=== PATIENT | female | born 1955 | race Asian ===

== ENCOUNTER 2023-08-29 13:57 | Outpatient (AMB) | payer BC, SELFPAY ==
--- NOTE | 2023-08-29 14:03 | A.OFFVIS_ITS ---
Intake Vital Signs 08/29/23 14:06 Height 5 ft 4 in Weight 112 lb 6.972 oz BMI 19.3 BP 160/84 H Blood Pressure Location Lt brachial Position Sitting Pulse 68 Intake Visit Reasons: H Pylori, eructation Intake Note: Thuy presents in the office for H Pylori & Eructation. CC: She states that she is having acid reflux and mainly she has bad breathe in the morning and she feels something is wrong in her stomach. She states after she eats she feels like it gets worse. She has a lot of gas in her stomach and belching with flatulence. She tested pos for h pylori and she states that she could not finish the treatment because it was causing her symptoms. She states she feels better taking the Omeprazole. Armature Connector Required: No Allergies No Known Allergies Allergy (Verified 08/29/23 14:06) HPI HPI Comments History of Present Illness Details 67y.o F here for second opinion on H pyl marlena treatment. Reports that has been a lot of bloating and distention juliet after eating x years. Has bad taste in mouth on morning. Was seen by her PCP and H pylori was positive. Was prescribed clarithro+flagyl+omeprazole but could not tolerate it beyond 2 days. Reported metallic taste in mouth and change in color of urine which bothered her. Pt originally from [place] and moved to [place] as a kid and then to [facility] 5 years ago. Reports having an EGD/colo in [place] last year. Reports EGD showed some inflammation in the stomach and 2-3 polyps were removed. Has reports but back in [place]. Review of Systems Const All systems reviewed & are unremarkable except as noted in HPI and below Physical Exam Vital Signs: Last Vital Signs Pulse 68 08/29/23 14:06 BP 160/84 H 08/29/23 14:06 BMI result Body Mass Index 19.3 Gen appear: NAD HEENT: nonicteric, no cervical lymphadenopathy Chest: CTA CVS: Regular S1/S2 Abd: soft, nontender, nondistended, bowel sounds + Ext: no peripheral edema Neuro: A/Ox3, noted to move all extremities spontaneously Psych: interacting appropriately Assessment & Plan Assessment & Plan (1) H. pylori infection: Code(s): A04.8 - Other specified bacterial intestinal infections Plan Reviewed with the pt that while dyspeptic sx may or may not be secondary to H Pylori, due to her ethnicity at high risk and therefore strongly recommend eradication. She was educated re quad therapy and that some side effects are expected but th at will resolve once tx is completed. She was also informed that while eradication is important, it is not time sensitive and can postpone it to when she knows she will be able to commit to it. Pt prefers to wait until after the holiday season to start the quad therapy which is reasonable. Plan: - Quad therapy as below: 14 days of therapy (should not start any of these until has ALL 4 meds filled) : Omeprazole 20mg BID Tetracycline 500mg 4 times a day (avoid sunburn while taking) Metronidazole 250mg 4 times a day? (avoid all alcohol while taking, can take with food to avoid nausea) Bismuth Subsalicylate 524mg 4 times a day (may turn stools black) - Counseled re possible/side effects as above - Handout provided as well - GRIS to be done 2-3 weeks after completion of quad therapy - Pt was also advised to bring her endoscopy records at next follow up to see if needs surveillance for GIM if present Follow up in 4-5 months as per pt's preference Medications: New metronidazole 250 mg PO QID 56 tabs 0RF 14 days omeprazole 20 mg PO BID 28 caps 0RF 14 days tetracycline 500 mg PO QID 56 caps 0RF 14 days bismuth subsalicylate 2 tabs PO QID 112 tabs 0RF 14 days Patient Instructions: Dear Thuy ? This is to review the results of the testing. As discussed the testing showed presence of H.Pylori which is a bacteria that can cause irritation and changes in the lining of the stomach. In most patients, it is important to treat this as if left untreated there is a small chance of the gastric changes progressing to cancer. This small risk is variable and also depends on other factors such as obesity, diabetes, family history etc. Treatment is through a combination of antibiotics and acid-suppressing medications to be taken for 2 weeks. Please do not start the treatment until you have ALL the following pills: -Omeprazole 40mg 2 times a day -Tetracycline 500mg 4 times a day (avoid sunburn while taking) -Metronidazole 250mg 4 times a day? (this may cause abdominal discomfort and nausea. Avoid all alcohol while taking, can take with food to avoid nausea) -Bismuth Subsalicylate 524mg 4 times a day (may turn stools black). Once the treatment has been completed, we will discuss the next steps, including making sure the bacteria has been eliminated ( test of cure ). If you have any questions, please call the office at [phone]. Sincerely Charley Roberts MD Gastroenterology [address] [place] [address], [address] [place] [address] Coding Level of Care Code New Pt Level 4 (41673) Diagnoses H. pylori infection A04.8
[2023-08-29 14:06] VITALS: BP 160/84; PULSE 68; BMI 19.3
== END 2023-08-29 14:43 | disposition home or self-care (01) ==
PROVIDERS: PCP Nurse Practitioner Primary Care; Visit Provider Internal Medicine
DX: A04.8 Other specified bacterial intestinal infections (principal)
CPT/HCPCS: 99204

== ENCOUNTER → 2023-08-29 13:57 | Outpatient (BNVA) | payer BC, SELFPAY | PROVIDERS: PCP Nurse Practitioner Primary Care; Visit Provider Internal Medicine ==

== ENCOUNTER 2024-01-26 15:02 | Outpatient (AMB) | payer BC, SELFPAY ==
[2024-01-26 15:14] VITALS: BP 136/84; PULSE 69; BMI 19.5
--- NOTE | 2024-01-26 15:14 | MHC.OFFVIS ---
Intake Vital Signs 01/26/24 15:14 Height 5 ft 4 in Weight 113 lb 12.136 oz BMI 19.5 BP 136/84 Blood Pressure Location Rt brachial Position Sitting Pulse 69 Pulse Source Pulse Oximeter Intake Visit Reasons: 4 month follow up H Pylori results Intake Note: Pt presents to the office today for a 4 month follow up for H pylori results. Pt states she is feeling well. She denies any GI concerns. Allergies No Known Allergies Allergy (Verified 01/26/24 15:16) HPI HPI Comments History of Present Illness Details 67y.o F here for second opinion on H pylori treatment. Reports that has been a lot of bloating and distention juliet after eating x years. Has bad taste in mouth on morning. Was seen by her PCP and H pylori was positive. Was prescribed clarithro+flagyl+omeprazole but could not tolerate it beyond 2 days. Reported metallic taste in mouth and change in color of urine which bothered her. Pt originally from [place] and moved to [place] as a kid and then to [facility] 5 years ago. Reports having an EGD/colo in [place] last year. Reports EGD showed some inflammation in the stomach and 2-3 polyps were removed. Has reports but back in [place]. 01/26/24: Here for follow up. Was not able to tolerate her H Pylori tx. Decreased flagyl and tetracycline to TID and only took bismuth half the time (has 42 pills left). States sx of epigastric burning and bloating became even worse when she started quad therapy. PFSH Surgical History (Updated 01/26/24 @ 15:21 by Chelsea Luque MA) Hx of hysterectomy Social History (Updated 01/26/24 @ 15:20 by Chelsea Luque MA) Household Members: Spouse Housing: House Alcohol intake: never Patient Tobacco Use Status: Never used Tobacco Review of Systems Const All systems reviewed & are unremarkable except as noted in HPI and below Physical Exam Vital Signs: Last Vital Signs Pulse 69 01/26/24 15:14 BP 136/84 01/26/24 15:14 BMI result Body Mass Index 19.5 Gen appear: NAD HEENT: nonicteric, no cervical lymphadenopathy Chest: CTA CVS: Regular S1/S2 Abd: soft, nontender, nondistended, bowel sounds + Ext: no peripheral edema Neuro: A/Ox3, noted to move all extremities spontaneously Psych: interacting appropriately Assessment & Plan Assessment & Plan (1) H. pylori infection: Code(s): A04.8 - Other specified bacterial intestinal infections Plan Reviewed with the pt that while dyspeptic sx may or may not be secondary to H Pylori, due to her ethnicity at high risk, eradication is strongly recommended. At this point, pt does not wish to try H Pylori eradication treatment a 3rd time. However willing to undergo an EGD for mapping and screening for GIM. Plan: - EGD with mapping bx to be booked - Pt advised that if bx show GIM, would strongly recommend 3rd time tx for H Pylori to mitigate risk fo gastric ca however if no metaplasia, ok to surveil with interval EGDs. Follow up after EGD Coding Level of Care Code Est Pt Level 4 (68286) Diagnoses H. pylori infection A04.8
== END 2024-01-26 16:22 | disposition home or self-care (01) ==
PROVIDERS: PCP Nurse Practitioner Primary Care; Visit Provider Internal Medicine
DX: A04.8 Other specified bacterial intestinal infections (principal)
CPT/HCPCS: 99214

== ENCOUNTER → 2024-01-26 15:02 | Outpatient (BNVA) | payer BC, SELFPAY | PROVIDERS: PCP Nurse Practitioner Primary Care; Visit Provider Internal Medicine ==

== ENCOUNTER 2024-07-13 06:18 | Day surgery (SDC) | payer MEDICARE, SELFPAY ==
[2024-07-08 11:22] VITALS: BMI 19.6
--- NOTE | 2024-07-09 10:26 | HO.ANESPROP2 ---
Documented by User: Sandra Silverio NP 07/09/24 10:26 HPI - Anesthesia Eval Consult details Narrative: 68yo F for Upper Endoscopy [facility] Active Problems Active Problems: All Active Problems H. pylori infection (Acute) Past Medical History Medical History (Updated 07/08/24 @ 11:21 by Shanique Chaudhry RN) Dyspepsia H. pylori infection Surgical History Surgical History (Updated 07/08/24 @ 11:20 by Shanique Chaudhry RN) History of esophagogastroduodenoscopy (EGD) H/O colonoscopy Hx of hysterectomy Social History Social History (Updated 01/26/24 @ 15:20 by Chelsea Luque CMA) Household Members: Spouse Housing: House Alcohol intake: never Patient Tobacco Use Status: Never used Tobacco Use of substances other than those prescribed or required for medical reasons: No Are you DNR?: No Advance Directives: No Advance Directives Information Provided: Yes Recently lost weight without trying: No Nutrition Risks: No Nutritional Risk Meds Allergies Allergy/AdvReac Type Severity Reaction Status Date / Time No Known Allergies Allergy Verified 07/13/24 06:57 Home Medications ?Medication ?Instructions ?Recorded ?Confirmed ?Last Taken ?Type omeprazole 20 mg capsule,delayed 20 mg PO DAILY 08/29/23 07/13/24 Unknown History release alendronate 70 mg tablet 70 mg PO QWEEK 07/13/24 07/13/24 Unknown History paroxetine HCl 20 mg tablet 10 mg PO QAM 07/13/24 07/13/24 Unknown History Exam Height,Weight and Vital Signs: Height 5 ft 4 in Weight 51.71 kg Assessment and Plan Assessment Anesthesia Assessment: PAT Visit Documented by User: Osmar Buck MD 07/13/24 07:35 [facility] Past Medical History Medical History (Updated 07/08/24 @ 11:21 by Shanique Chaudhry RN) Dyspepsia H. pylori infection Family History Family history of problems with anesthesia: No Surgical History Surgical History (Updated 07/08/24 @ 11:20 by Shanique Chaudhry RN) History of esophagogastroduodenoscopy (EGD) H/O colonoscopy Hx of hysterectomy History of Problems with Anesthesia: No Social History Social History (Updated 01/26/24 @ 15:20 by Chelsea Luque CMA) Household Members: Spouse Housing: House Alcohol intake: never Patient Tobacco Use Status: Never used Tobacco Use of substances other than those prescribed or required for medical reasons: No Are you DNR?: No Advance Directives: No Advance Directives Information Provided: Yes Recently lost weight without trying: No Nutrition Risks: No Nutritional Risk Meds Allergies Allergy/AdvReac Type Severity Reaction Status Date / Time No Known Allergies Allergy Verified 07/13/24 06:57 Home Medications ?Medication ?Instructions ?Recorded ?Confirmed ?Last Taken ?Type omeprazole 20 mg capsule,delayed 20 mg PO DAILY 08/29/23 07/13/24 Unknown History release alendronate 70 mg tablet 70 mg PO QWEEK 07/13/24 07/13/24 Unknown History paroxetine HCl 20 mg tablet 10 mg PO QAM 07/13/24 07/13/24 Unknown History Exam Airway Mallampati Class: II TM Dist: <=3cm Neck ROM: Full Loose/Missing/Broken Teeth: No Heart: ok Lungs: ok Assessment and Plan Assessment Anesthesia Assessment: Anesthesia Plan Discussed and Chart Reviewed Final Anesthetic Review Family History of Problems with Anesthesia: No History of Problems with Anesthesia: No NPO: Yes ASA Class: II Final Preanesthetic Review: No Changes in Pt Med Stat, Meds/Allgs Chart Reviewed, Consent Obtained/Reviewed and Anes Risks/Benef Reviewed Patient Risk: Low Procedure Risk: Intermediate Anesthetic Plan Anesthetic Plan: Agree w/ Assess. and Plan and TIVA Disposition: Standard PACU
[2024-07-13 07:03] VITALS: BMI 19.2
[2024-07-13 07:29] VITALS: BP 157/87; PULSE 55; RESP 16; TEMP 36.1; O2SAT 99
[2024-07-13] MEDS: Lactated Ringers 1,000 ML 100 ML IVCONT (07:31)
--- NOTE | 2024-07-13 08:01 | MHC.SHP ---
Pre-Procedural Eval Section A - 24 Hr Update-Section A only Date of Service: 07/13/24 Section B - Complete if H&P > 30 days Chief Complaint: Other specified bacterial intestinal infections Present Medications: see Short Stay Collaborative assessment History of Previous Operations: No relevant previous surgery Allergies: Allergies Allergy/AdvReac Type Severity Reaction Status Date / Time No Known Allergies Allergy Verified 07/13/24 06:57 Review of Systems Review of Systems Comment: Ten point ROS negative Exam Exam Comment: Gen appear: No acute distress HEENT: no icterus Chest: No overt resp distress Abd: soft, nontender, nondistended Psych: Stable affect, answering questions appropriately Neuro: A/Ox3 noted to move all extremities spontaneously Ext: no peripheral edema Plan Diagnosis/Plan: Unchanged I have reviewed the history and physical and performed a pertinent physical examination on my patient. No changes have occurred unless specified. Time Spent With Patient Time: Total time managing care of this patient today ____ minutes.
--- NOTE | 2024-07-13 08:03 | P.OP_ITS ---
Operative Note Operative Note Date of Service: 07/13/24 Narrative: Procedure: Esophagogastroduodenoscopy Endoscopist: Charley Roberts MD Indication: H Pylori infection, screening for gastric ca Anesthesia Provider: Dr Osmar Buck Anesthesia Type: MAC ?? EGD Procedure:?? The procedure, indications, preparation and potential complications were reviewed with the patient, who indicated understanding and gave written informed consent to proceed. A physical exam was performed. The endoscope was introduced through the mouth, and advanced to the second part of duodenum. The mucosa was carefully examined on slow withdrawal of the endoscope. The patient tolerated the procedure well. There were no immediate complications.? ? EGD Findings:? * Esophagus:? Normal mucosa noted in the entire esophagus. The Z line was at 40 cm and was irregular up to 39 cm. GE junction biopsies were obtained to rule out barlow's esophagus. * Stomach:? Scant heme and erosions were noted in the body and antrum. Retroflexion was performed in the cardia that showed Hill grade II hiatal hernia. Cold forceps gastric biopsies were taken as per Kathy protocol to screen and map for GIM. Cold forceps biopsies were also taken and added to arredondo-top jar and sent to micro lab for culture of H Pylori. * Duodenum:? Normal mucosa was noted in the whole of the examined duodenum. Cold forceps biopsies were taken from duodenal bulb and second portion of the duodenum to rule out celiac sprue. ? EGD Impressions:? * Irregular Z line (biopsy) * Hiatal hernia * Gastritis (mapping biopsy, culture) * Normal duodenum (biopsy) ?? Recommendations:?? * Follow biopsy results. Our office will call or send a letter with results within 7-10 days. * Continue PPI therapy. * Patient has previously declined re-treatment for H pylori however if GIM present would strongly recommend re-treatment. Cultures taken to help tailor Abx therapy. * Avoid NSAIDs. Above has been reviewed with the patient.
[2024-07-13 08:35] VITALS: BP 127/74; PULSE 55; RESP 18; TEMP 36.4; O2SAT 98
[2024-07-13 08:54] VITALS: BP 166/90; PULSE 51; RESP 18; TEMP 36.4; O2SAT 98
== END 2024-07-13 09:50 | disposition home or self-care (01) ==
PROVIDERS: Visit Provider Internal Medicine
PROC: 0DJ08ZZ Inspection of Upper Intestinal Tract, Via Natural or Artificial Opening Endoscopic (ICD-10-PCS; CPT 43235; principal; 2024-07-13 07:40)
DX: K29.50 Unspecified chronic gastritis without bleeding (principal); K22.89 Other specified disease of esophagus; K44.9 Diaphragmatic hernia without obstruction or gangrene; Z90.710 Acquired absence of both cervix and uterus; Z79.899 Other long term (current) drug therapy
CPT/HCPCS: 43239; 87081; 87205; 88305; 88313; 88342; J2704

== ENCOUNTER → 2024-07-13 06:18 | Outpatient (BNV) | payer MEDICARE, SELFPAY | PROVIDERS: Visit Provider Internal Medicine | DX: A04.8 Other specified bacterial intestinal infections (principal); K29.70 Gastritis, unspecified, without bleeding | CPT/HCPCS: 43239 ==

== ENCOUNTER 2024-10-25 10:53 | Outpatient (REF) | payer MEDICARE, SELFPAY ==
[2024-10-25 12:00] LABS: MANUAL DIFF FLAG NO
[2024-10-25 12:55] LABS: Basophils Percent Auto 0.8 % (0-2); Eosinophils Percent Auto 0.8 % (0-4); Hematocrit 38.7 % (37.0-47.0); Hemoglobin 12.8 g/dl (12.0-16.0); Mean Corpuscular HGB Conc 33.1 g/dl (31.0-35.0); Mean Corpuscular Hemoglobin 30.6 pg (27.0-33.0); Mean Corpuscular Volume 92.6 fL (80.0-98.0); Mean Platelet Volume 9.6 fL (9.4-12.3); Monocytes Absolute Auto 0.3 X10*3/uL (0.1-1.2); Monocytes Percent Auto 7.5 % (2-11); Neutrophils Absolute Auto 2.6 x10*3/uL (2.0-8.3); Neutrophils Percent Auto 65.9 % (45-73); Platelet Count 256 X10*3/uL (160-400); Red Blood Count 4.18 X10*6/uL (4.20-5.50); Red Cell Distribution Width 13.7 % (11.0-16.0); White Blood Count 3.9 X10*3/uL (4.8-10.8)
[2024-10-25 13:38] LABS: Vitamin D 25-OH Total 54.3 ng/mL (>30)
[2024-10-25 13:58] LABS: Erythrocyte Sedimentation Rate 12 MM/HR (0-20)
[2024-10-27 12:29] LABS: Anti Nuclear Antibody Screen NEGATIVE (NEGATIVE)
[2024-10-29 21:44] LABS: Aldolase 7.1 U/L (<=8.1)
== END 2024-10-25 10:54 | disposition home or self-care (01) ==
LOC: HO.LAB 10:53
PROVIDERS: Visit Provider Internal Medicine
DX: M79.10 Myalgia, unspecified site (principal); K62.6 Ulcer of anus and rectum; A04.8 Other specified bacterial intestinal infections
CPT/HCPCS: 36415; 82085; 82306; 82550; 85025; 85652; 86038; 99212